=== PATIENT | male | born 1965 | race Caucasian/White ===

== ENCOUNTER 2017-09-20 13:59 | Outpatient (CLI) | payer OTHER ==
--- NOTE | 2017-09-20 19:44 | RAD ---
CHEST TWO VIEWS: 09/20/2017 FINDINGS: The heart is normal in size, and the lungs are clear. No infiltrate or effusion is seen. There is n o vascular congestion or edema. The mediastinum appears normal, and the trachea is midline. A small , tiny, nodular density in the right base is probably either a granuloma or a confluence of shadows. IMPRESSION: No acute thoracic findings. POS: HOME
== END 2017-09-20 14:00 | disposition home or self-care (01) ==
LOC: BURRAD 13:59
PROVIDERS: ATTEND Family Medicine
DX: R05 Cough (principal); R07.9 Chest pain, unspecified
CPT/HCPCS: 71046

== ENCOUNTER 2022-07-12 09:53 | Emergency (ER) | payer SELFPAY | END 2022-07-12 10:32 | disposition home or self-care (01) | LOC: BURERS 09:53 | DX: R06.02 Shortness of breath (principal); S80.212A Abrasion, left knee, initial encounter; S60.511A Abrasion of right hand, initial encounter; S50.812A Abrasion of left forearm, initial encounter; I10 Essential (primary) hypertension; F17.210 Nicotine dependence, cigarettes, uncomplicated; X58.XXXA Exposure to other specified factors, initial encounter | CPT/HCPCS: 93005 ==